=== PATIENT | female | born 1935 | race African-American/Black ===

== ENCOUNTER 2021-10-05 08:21 | Emergency (ER) | payer MEDICARE, MEDICAID ==
[~2021-10-05] VITALS: Ht 172.7 cm; Wt 90.0 kg
[2021-10-05] MEDS ORDERED: SODIUM CHLORIDE 0.9% 1000ML BAG (SEPSIS BOLUS) IV ONE (08:30)
[2021-10-05] MEDS ORDERED: VANCOMYCIN 1G PREMIX 200 ML IV ONE (08:30)
[2021-10-05] MEDS ORDERED: PIPERACILLIN/TAZ 3.375G PREMIX 50 ML IV ONE (08:30)
[2021-10-05 09:46] LABS: HEMOGLOBIN. 9.4 g/dL (12.0-16.0); MEAN CORPUSCULAR HEMOGLOBIN 30.1 pg (28.0-32.0); PLATELET 149 x1000/uL (130-400); RED BLOOD CELL COUNT 3.11 mill/uL (4.2-5.4); RED CELL DISTRIBUTION WIDTH 17.3 % (11.6-14.6)
[2021-10-05 09:48] LABS: CHLORIDE 109 mEq/L (98-107)
[2021-10-05 10:17] LABS: CLARITY URINE TURBID (CLEAR); KETONES URINE TRACE (NEGATIVE); LEUKOCYTE ESTERASE URINE 3+ (NEGATIVE); NITRITE URINE POSITIVE (NEGATIVE); OCCULT BLOOD URINE 3+ (NEGATIVE); PH URINE 7.5 (4.5-8.0); PROTEIN URINE 2+ (NEGATIVE)
[2021-10-05 10:19] LABS: COLOR URINE BROWN (YELLOW)
[2021-10-05 12:50] LABS: PLATELET ESTIMATE NORMAL
[2021-10-05] MEDS ORDERED: HYDRALAZINE 20MG/ML VIAL IV NR (13:30)
[2021-10-05] MEDS ORDERED: SODIUM CHLORIDE 0.9% 1,000 ML IV SCH (13:45)
[2021-10-05] MEDS ORDERED: PAMIDRONATE DISODIUM 60 MG in SODIUM CHLORIDE 0.9% 1,000 ML IV NR (14:00)
[2021-10-05 14:59] VITALS: BP 162/81
== END 2021-10-05 15:11 | disposition short-term general hospital (02) ==
LOC: ER 08:53 → CANBEDREQ 17:15
DX: A41.9 Sepsis, unspecified organism (principal); E86.0 Dehydration; G93.40 Encephalopathy, unspecified; N30.90 Cystitis, unspecified without hematuria; Z85.6 Personal history of leukemia; I10 Essential (primary) hypertension; Z20.822 Contact with and (suspected) exposure to COVID-19
CPT/HCPCS: 36415; 70450; 71045; 80053; 81003; 83605; 84484; 85025; 87040; 87086; 87426; 93005; 96361; 96365; 96368; 96375; 99291; J0360; J2430; J2543; J3370; J7030; J7040